=== PATIENT | female | born 1950 | race Caucasian/White ===

== ENCOUNTER 2019-12-13 10:06 | Outpatient (CLI) | payer BC, MEDICARE, SELFPAY ==
--- NOTE | 2019-12-13 10:30 | MM_ITS ---
WS: [id number] DIAGNOSTIC BILATERAL DIGITAL MAMMOGRAM WITH CAD HISTORY: HX OF BREAST CA, RIGHT breast cancer COMPARISON: 12/10/2018 and 11/27/2017 TECHNIQUE: Bilateral craniocaudad, mediolateral oblique, and mediolateral views are submitted. Comput er aided detection utilized. Breast composition: There are scattered areas of fibroglandular density. Postsurgical changes upper o uter quadrant of the RIGHT breast are stable. Surgical clips are noted at the axillary tail and there is some skin thickening and stable distortion. Benign calcifications in the central RIGHT breast are stable. MM/[id number] IMPRESSION: BI-RADS: 2-Benign FOLLOW UP: 1 Year Follow-up
== END 2019-12-13 10:07 | disposition home or self-care (01) ==
LOC: RADSHAW 10:18
PROVIDERS: PCP Electrodiagnostic Medicine; Visit Provider Internal Medicine Medical Oncology
DX: Z85.3 Personal history of malignant neoplasm of breast (principal)
CPT/HCPCS: 77066

== ENCOUNTER 2020-01-24 11:18 | Emergency (ER) | payer OTHER, MEDICARE, BC, SELFPAY ==
[2020-01-24 11:23] VITALS: RESP 14; BMI 24.3
[2020-01-24 11:28] VITALS: BP 154/93; PULSE 63; RESP 14; TEMP 36.8; O2SAT 99
--- NOTE | 2020-01-24 11:33 | XRR_ITS ---
PROCEDURE INFORMATION: Exam: XR Left Wrist Exam date and time: 01/24/2020 12:19 PM Age: 69 years old Clinical indication: Pain and injury or trauma; Fall; Initial encounter; Blunt trauma (contusions or hematomas; Wrist; Left; Injury date: 01/24/20; Additional info: Fall, deformity TECHNIQUE: Imaging protocol: XR Left wrist. Views: 1 or 2 views. COMPARISON: No relevant prior studies available. FINDINGS: Bones/joints: Comminuted, impacted and displaced distal radial fracture with intra-articular extension. No dislocation. Minimally impacted distal ulnar fracture. Soft tissues: Edema/hematoma. XR/XR wrist LT 2V [id number] IMPRESSION: Comminuted, displaced distal radial fracture with intra-articular extension. Distal ulnar fracture.
--- NOTE | 2020-01-24 11:35 | W.ED.EXTPRO ---
HPI - Extremity Problem General: Chief complaint: Extremity Injury, Upper Stated complaint: LEFT WRIST PAIN Time Seen by Provider: 01/24/20 11:26 Source: patient Mode of arrival: ambulatory Limitations: no limitations History of Present Illness: HPI Narrative: 69-year-old female patient who tripped on wires under her desk when she was trying to get up this morning and broke her fall with her outstretched arms. She sustained pain and deformity to her left wrist. She is here for evaluation. She did not hit her head, no loss of consciousness. MD Complaint: extremity pain Pain Consistency: constant Location: left and upper extremity Severity scale (1-10): 10 Quality: sharp Radiation: none Relieving factors: nothing Exacerbating factors: range of motion and weight bearing Associated symptoms: Deny chest pain or fever(s) Review of Systems General: Reports: 10 or more systems reviewed and unremarkable except in HPI and below Const: Denies: fever(s), chills or body aches Card: Denies: chest pain, palpitations, irregular heart rhythm, edema or swelling of feet/ankles Resp: Denies: dyspnea, productive cough, non-productive cough or wheezing GI: Denies: abdominal pain, nausea or vomiting Musc: Reports: extremity pain, extremity swelling and limited range of motion Neuro: Denies: headache(s), numbness in extremities, weakness in extremities or sensory changes Physical Exam Const: COMMON NORMALS: patient oriented x3, healthy appearing and alert GENERAL APPEARANCE: in distress Resp: COMMON NORMALS: normal respiratory effort, No retractions, No use of accessory muscles and clear to auscultation bilaterally AUSCULTATION: clear to auscultation bilaterally Cardio: COMMON NORMALS: regular rate, regular rhythm, S1 normal heart sound present and S2 normal heart sound present RATE: regular rate RHYTHM: regular rhythm HEART SOUNDS: S1 normal heart sound present and S2 normal heart sound present GI: COMMON NORMALS: Normal to inspection, nondistended, normoactive bowel sounds present, Soft to palpation, non-tender and No hepatosplenomegaly present PALPATION: Yes Soft to palpation and Yes No hepatosplenomegaly present Extremity: LEFT UPPER EXTREMITY: Yes wrist Left wrist: Yes inspection (Dinner fork deformity noted on the left wrist), Yes palpation (Tender to palpation, bony tenderness.), Yes ROM (Limited range of movement.) and Yes neurovascular exam (Neurovascular status intact.) Neuro: COMMON NORMALS: patient oriented x3 SENSORIUM/ORIENTATION: Yes alert Procedures Orthopedic Fracture Reduction Fracture #1: Time Out Performed: Yes Side: left Fracture Reduction Location: radius Analgesia: hematoma block Technique: traction/counter-traction Post-reduction neuro exam: intact and no change Post-reduction vascular exam: intact and no change Splint Applied: Yes Patient Tolerated Procedure: well Course Consultations: Consultation #1: Dr. Sheth, orthopedic surgeon. He looked at the images and said this is a complex fracture and she needs to be seen by hand surgeon. Time: 13:28 Consultation #2: Spoke to Dr. Uribe, hand surgeon at [facility] in [place]. She advised that the patient can be seen in the clinic in 2 days and will have surgery in 3 days. She would like a preoperative COVID testing done. The patient will be called to schedule the appointment for . Time: 14:10 Vital Signs: Vital signs: Vital Signs Temperature 98.3 F 01/24/20 11:28 Pulse Rate 60 01/24/20 15:05 Respiratory Rate 16 01/24/20 15:05 Blood Pressure 132/73 01/24/20 15:05 Pulse Oximetry 95 01/24/20 15:05 MDM - Extremity (Nontraumatic) MDM Narrative: Medical decision making narrative: 69-year-old female patient who fell on an outstretched arm and sustained a comminuted, impacted, fracture of her distal radius with intra-articular extension. Because of the complexity of the fracture the local orthopedic surgeon asked that she be seen by hand surgeon. I spoke with the hand surgeon at [facility] in [place] and she will see the patient in the clinic in 2 days and will take her to the OR in 3 days. A reverse sugar tong splint was applied to the left forearm and wrist and reduction was attempted. Hematoma block was performed and she had great pain control with that. She is discharged home with oral pain medications and splint instructions. Medical Records: Attestation: I reviewed the patient's medical records. Imaging Data^: Xray Ortho: Radiologist's impression: [address] [address] XRay Report Signed Patient: Baldo Mario #: [id number] : 2Acct#:[id number] Age/Sex: 69 / FADM Date: 01/24/20 Loc: ERRoom/Bed: Attending Dr: Ordering Provider/Ordering MD: Frankie Riggs [place] [facility] [place]: 01/24/20 Procedure(s): XR wrist LT 2V [id number] Accession Number(s): [id number] Report Number: [id number] PROCEDURE INFORMATION: Exam: XR Left Wrist Exam date and time: 01/24/2020 12:19 PM Age: 69 years old Clinical indication: Pain and injury or trauma; Fall; Initial encounter; Blunt trauma (contusions or hematomas; Wrist; Left; Injury date: 01/24/20; Additional info: Fall, deformity TECHNIQUE: Imaging protocol: XR Left wrist. Views: 1 or 2 views. COMPARISON: No relevant prior studies available. FINDINGS: Bones/joints: Comminuted, impacted and displaced distal radial fracture with intra-articular extension. No dislocation. Minimally impacted distal ulnar fracture. Soft tissues: Edema/hematoma. XR/XR wrist LT 2V [id number] IMPRESSION: Comminuted, displaced distal radial fracture with intra-articular extension. Distal ulnar fracture. Dictated By:Aaron Phoenix MD Signed By:Aaron Phoenix MDSigned Date/Time:01/24/20 1241 DD/ 1240 Discharge Plan Discharge Patient Disposition: Home, Self-Care Clinical Impression: Fracture of wrist Qualifiers: Encounter type: initial encounter Fracture type: closed Laterality: left Qualified Code(s): S62.102A - Fracture of unspecified carpal bone, left wrist, initial encounter for closed fracture Condition: Stable Prescriptions: New [employer] 5-325 mg tablet 1 tab PO Q6H PRN (Reason: wrist fracture) Qty: 30 RF: 0 Continued Adult Multivitamin Gummies 200 mcg Tablet,Chewable 200 mcg PO DAILY RF: 0 Immune Support 250-12.5 mg Tablet,Chewable See Rx Instructions .ROUTE .COMPLEX RF: 0 Calcium Chews 2 tab PO DAILY RF: 0 Vitamin D3 1 tab PO DAILY RF: 0 Vitamin-B Gummies 2 tab PO DAILY RF: 0 glucosamine-chondroitin 1 tab PO DAILY RF: 0 Discharge Orders: Discharge Order (Routine); Ordered 01/24/20 Ordered By: Frankie Riggs Referrals: Chepe Mesa [Primary Care Provider] - 7-10 days Patient Instructions: Wrist Fracture in Adults (ED) Activity Restrictions/Additional Instructions: Return for any new or worsening symptoms. You will be contacted by the the office of the hand surgeon at [facility] for you to be seen in the office on , and the expected to take you to the OR for surgery on Thursday. Take the pain medicine as needed for pain. If you notice your fingers are looking pale or bluish in color the splints may be too tight so take the splint off and return for evaluation. If he also notices severe pain when you move your fingers do the same thing. If you feel a numb sensation or your fingers feel that, take the splint off and return for evaluation. Discharge Date/Time: 01/24/20 15:05 Coding Level of Care Code ED Devops Consultant for Jose J Fwjane Exam Detailed
[2020-01-24 12:01] VITALS: RESP 12; O2SAT 98
[2020-01-24] MEDS: morphine 4 mg/mL SDV 1 mL 8 MG IM (12:01)
[2020-01-24 12:26] VITALS: BP 121/78; PULSE 59; RESP 12; O2SAT 98
[2020-01-24] MEDS: lidocaine 1% INJ 20 mL INTRADERMA (14:35)
[2020-01-24 15:05] VITALS: BP 132/73; PULSE 60; RESP 16; O2SAT 95
[2020-01-26 11:05] LABS: Coronavirus Lab Test PTC NOT DETECTED
== END 2020-01-24 15:05 | disposition home or self-care (01) ==
PROVIDERS: Emergency Provider Family Medicine; PCP Electrodiagnostic Medicine
DX: S52.572A Other intraarticular fracture of lower end of left radius, initial encounter for closed fracture (principal); S52.602A Unspecified fracture of lower end of left ulna, initial encounter for closed fracture; W01.0XXA Fall on same level from slipping, tripping and stumbling without subsequent striking against object, initial encounter
CPT/HCPCS: 12345; 25605; 73100; 87635; 96372; 96375; 99281; 99283; J2001; J2270

== ENCOUNTER 2020-06-19 08:36 | Outpatient (CLI) | payer MEDICARE, SELFPAY ==
--- NOTE | 2020-06-22 14:08 | ONC FU_ITS ---
Dr. Medellin Patient Follow-Up Note Patient: Natalie Mario Unit #: [id number]: 1950 Dicatated By: Sanjiv Medellin M.D.Date of Visit:Jun 19, 2020 Onc Med Follow-up/Prog Note Chief Complaint: Breast cancer. 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 She has a history of right breast cancer, diagnosed in February of 2009. She underwent lumpectomy and axillary sentinel lymph node biopsy on 03/30/2009. Pathology showed grade 1 invasive mammary carcinoma, no special type. The tumor measured 1.5 cm in maximum diameter. It was ER positive at 99% and AZ positive at 90%. It was negative for overexpression of HER-2/roselia, 1+ by IHC. There was involvement in 1 of 4 axillary sentinel lymph nodes. A subsequent axillary lymph node dissection on 04/19/2009 showed no involvement in an additional 13 lymph nodes. Her Oncotype DX showed a recurrence score of 9, low risk. Adjuvant chemotherapy was not recommended. She was given radiation to the right breast which she completed on 07/19/2009 to a total dose of 6100 cGy. She received 5 years of adjuvant hormonal therapy with Femara. Her last dose was in June of 2014. She was first seen here by Dr. Jaimes on 09/25/2014. She has continued followup on observation/expectant management. She has had no other medical illnesses, and she takes no prescription medication. She is a nonsmoker. She is seen for a followup visit. She indicates that in December she had surgery for a left wrist fracture. She had no further complications, and has been healing gradually. She has good energy and activity tolerance. ECOG score is 0. Appetite is good and her weight is stable. She has not had fever. She says she is done with the hot flashes now. She has no shortness of breath, cough, or chest pain. She has no GI or complaints. She also has some arthritis pain, mainly in the knees. She has no focal neurologic symptoms. Medications: She is not taking any prescription medication. Allergies: SULPHA Review of Systems: Constitutional - She has good energy and activity tolerance. Appetite is good and weight is stable. No fever, night sweats, or hot flashes. ECOG score is 0, ENMT - No sinus congestion/drainage. No mouth sores. No sore throat or difficulty swallowing, Hematologic/Lymphatic - No abnormal bruising or bleeding, Respiratory - No shortness of breath. No cough. No pleuritic pain or hemoptysis, Cardiovascular - No angina pain. No palpitations, Gastrointestinal - No nausea or vomiting. No heartburn or acid reflux. No diarrhea or constipation. No blood in the stool or black stools, Genitourinary (F) - No dysuria or hematuria. No urinary frequency. No urgency or incontinence, Musculoskeletal - She had surgery for a left wrist fracture in December, that has been getting better gradually. She also has some arthritis pain, mainly in her knees, Integumentary - No skin rash, Neurologic - No headache or dizziness. No numbness or tingling. No other focal neurologic symptoms, Psychiatric - No anxiety or depression. No insomnia. Vital Signs: Performed on Jun 19, 2020 08:45 Height - 68.00 in Weight - 161.8 lbs (HIGH) BSA - 1.87 sq.m BMI - 24.60 Temperature - 98.8 F Pulse - 73 /min Respiration - 16 /min BP - 117/72 mm(hg) O2 Sat - 97 % Pain - 0 Physical Examination: Constitutional - She looks good generally, Eyes - Sclerae nonicteric. Conjunctivae clear, ENMT - No lesions noted in the oral cavity, Hematologic/Lymphatic - No cervical, clavicular, or axillary adenopathy, Respiratory - Lungs are clear with good air movement bilaterally, Cardiovascular - Heart rhythm is regular. There is a II/ systolic murmur. There is no gallop or rub noted, Abdomen - Soft. Liver and spleen are not enlarged. There is no abdominal mass or ascites noted and there is no inguinal adenopathy, Extremities - No edema, Neurologic - No focal neurologic deficits noted. Lab/Imaging: Test performed on Jun 15, 2020 08:06 Glucose 95 mg/dL BUN 22 mg/dL Creatinine 0.82 mg/dL Cr Clearance (Est) 75.89 mL/min Sodium 143 mmol/L Potassium 4.3 mmol/L Chloride 108 mmol/L CO2 27 mmol/L Calcium 9.5 mg/dL Protein, Total 6.5 g/dL Albumin 4.4 g/dL Globulin 2.1 g/dL A/G Ratio 2.1 Absolute Value Bilirubin, Total 0.7 mg/dL Alkaline Phosphatase 63 IU/L AST (SGOT) 17 IU/L ALT (SGPT) 13 IU/L WBC 6.9 10^9/L RBC 4.54 10^12/L HGB 14.5 g/dL HCT 42.0 % MCV 92.5 fl MCH 31.9 pg MCHC 34.5 g/dL RDW 12.3 % Platelet Count 191 10^9/L MPV 10.6 fL Neutrophils (Gran) 3.54 10^9/L Lymphocytes 2.629 10^9/L Monocytes 0.545 10^9/L Eosinophils 0.138 10^9/L Basophils 0.048 10^9/L Manual Lymphocytes 38.1 % Manual Monocytes 7.9 % Manual Eosinophils 2.0 % Manual Basophils 0.7 % Impression: 1. 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 2. She underwent lumpectomy and axillary sentinel lymph node biopsy on 03/30/2009 followed by right axillary lymph node dissection on 04/19/2009. Her Oncotype DX score was 9, low risk. Adjuvant chemotherapy was not recommended. 3. She was given radiation to the right breast, completed on 07/19/2009 to a total dose of 6100 cGy. 4. She received 5 years of adjuvant hormonal therapy with Femara, completed in June 2014. She has since then been followed on observation/expectant management. During follow-up she has had mild arthritis pain, and in December she required surgery for a left wrist fracture. Overall she has been doing well clinically. Thus far there has been no evidence of recurrence of the breast cancer. Plan: She remains on observation/expectant management for the breast cancer. She will be scheduled for her yearly diagnostic mammograms, which are overdue. She will be scheduled for a follow-up visit in one year. Signed By: Sanjiv Medellin M.D. <<Signature on File>>
== END 2020-06-19 08:37 | disposition home or self-care (01) ==
LOC: ONCMED 08:39
PROVIDERS: PCP Electrodiagnostic Medicine; Visit Provider Internal Medicine Medical Oncology
DX: Z08 Encounter for follow-up examination after completed treatment for malignant neoplasm (principal); Z85.3 Personal history of malignant neoplasm of breast; Z92.3 Personal history of irradiation; Z92.23 Personal history of estrogen therapy
CPT/HCPCS: G0463

== ENCOUNTER 2020-12-14 10:19 | Outpatient (CLI) | payer MEDICARE, SELFPAY ==
--- NOTE | 2020-12-14 10:24 | MM_ITS ---
WS: [id number] Bilateral diagnostic digital mammogram, 12/14/2020 Clinical Data: HX OF BREAST CA Comparison: 12/13/2019, 12/10/2018, 11/27/2017, 10/16/2016, 10/31/2015, 10/15/2015, 10/09/2014, 03/18/2013, 01/25, 02/10/2012, 05/16/2011, 11/12/2010, 04/26/2010, 10/23/2009. Findings: The breast parenchymal pattern shows fibroglandular tissue. There are surgical clips in the right axi lla. There are lymph nodes in the left axilla. There are no spiculated masses or clustered calcificat ions. MM/[place] [id number] Impression: Negative bilateral mammograms unchanged. BIRADS: 2-Benign FOLLOW UP: 1 Year Follow-up The CAD time checker was used.
== END 2020-12-14 10:20 | disposition home or self-care (01) ==
LOC: RADSHAW 10:22
PROVIDERS: PCP Electrodiagnostic Medicine; Visit Provider Internal Medicine Medical Oncology
DX: Z85.3 Personal history of malignant neoplasm of breast (principal)
CPT/HCPCS: 77066